=== PATIENT | female | born 2000 | race Caucasian/White ===

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

== ENCOUNTER → 2021-04-07 | Outpatient (CLI) | payer OTHER ==
[~2021-04-07] MED LIST changes: +BUSPAR5 MG PO; +DROSPIRENONE-E1 EAC2 PO; +LEXAPRO20 MG PO
[2021-04-07 17:18] LABS: BASO % 0.3 % (0.0-1.0); EOS # 0.1 10*3/uL (0.0-0.4); EOS % 1.3 % (1.0-4.0); HEMATOCRIT 41.3 % (37.0-47.0); LYMPH # 1.5 10*3/uL (1.3-4.4); LYMPH % 23.5 % (27.0-41.0); MEAN CELL VOLUME 88.2 fl (81.0-99.0); MEAN CORPUSCULAR HGB 28.4 pg (27.0-31.0); MEAN CORPUSCULAR HGB CONC 32.2 g/dl (33.0-37.0); MEAN PLATELET VOLUME 10.4 fl (9.6-12.3); MONO # 0.4 10*3/uL (0.1-1.0); MONO % 6.3 % (3.0-9.0); NEUT # 4.2 10*3/uL (2.3-7.9); NEUT % 68.4 % (47.0-73.0); PLATELET COUNT AUTOMATED 279 10*3/uL (130-400); RED BLOOD COUNT 4.68 10*6/uL (4.10-5.10); RED CELL DISTRI WIDTH 12.8 % (0-14.5); WHITE BLOOD COUNT 6.2 10*3/uL (4.8-10.8)
[2021-04-07 17:30] LABS: ALBUMIN 3.3 gm/dl (3.1-4.5); BUN 8 mg/dl (7-24); CHLORIDE 107 mmol/L (98-107); CREATININE 0.93 mg/dL (0.55-1.02); POTASSIUM 3.9 mmol/L (3.5-5.1); SGOT/AST 23 IU/L (3-35); SGPT/ALT 37 U/L (12-78); SODIUM 139 mmol/L (136-145)
[2021-04-07 19:18] LABS: ALKALINE PHOSPHATASE 69 U/L (45-117)
[2021-04-08 07:20] LABS: TOTAL PROTEIN 8.1 gm/dL (6.4-8.2)
[2021-04-08 15:07] LABS: MYCOPLASMA PNEUMONIAE IGG 898 U/mL (0-99); MYCOPLASMA PNEUMONIAE IGM <770 U/mL (0-769)
[2021-04-09 22:06] LABS: PARAINFLUENZA 1 CF 1:32 (Neg:<1:8); PARAINFLUENZA 2 CF 1:32 (Neg:<1:8); PARAINFLUENZA 3 CF 1:32 (Neg:<1:8)
== END | disposition home or self-care (01) ==
LOC: LAB 16:42
PROVIDERS: ATTEND Nurse Practitioner Family
DX: R53.83 Other fatigue (principal); R06.02 Shortness of breath; R09.81 Nasal congestion; R50.9 Fever, unspecified; R05.9 Cough, unspecified

== ENCOUNTER 2021-04-10 09:15 | Inpatient (IN) | payer OTHER ==
[~2021-04-10] VITALS: Ht 167.6 cm; Wt 89.4 kg
[2021-04-10] VITALS (31 sets, daily range): BP systolic 82–151; BP diastolic 38–80
[~2021-04-10 09:15] MED LIST changes: -BUSPAR5 MG PO; -DROSPIRENONE-E1 EAC2 PO; -LEXAPRO20 MG PO
[2021-04-10 10:20] LABS: BILIRUBIN Negative (Negative); BLOOD 1+ (Negative); CLARITY Turbid (Clear); COLOR Dark Yellow (Yellow); GLUCOSE Negative (Negative); KETONE Trace (Negative); LEUKO ESTERASE Negative (Negative); NITRITE Negative (Negative); SPECIFIC GRAVITY 1.025 (1.001-1.030)
[2021-04-10 10:26] LABS: ARTERIAL BLOOD GAS PH 7.318 (7.35-7.45); ARTERIAL BLOOD GAS PO2 378.8 (80-90)
[2021-04-10 10:28] LABS: URINE AMPHETAMINES < 1000 (1000ng/ml); URINE BARBITURATES < 200 (200ng/ml); URINE BENZODIAZEPINES < 200 (200ng/ml); URINE CANNABINOIDS (THC) < 50 (50ng/ml); URINE COCAINE < 300 (300ng/ml); URINE METHADONE < 300 (300ng/ml); URINE OPIATES < 300 (300ng/ml)
[2021-04-10 10:30] LABS: URINE PHENCYCLIDINE < 25 (25ng/ml)
[2021-04-10 10:30] LABS: ABG BASE EXCESS -9.3 mmol/L (-2.0-2.0)
[2021-04-10 10:35] LABS: BACTERIA 2+; EPITHELIAL CELLS 16-20; WBC 21-30 wbc/hpf (0-5)
[2021-04-10 11:12] LABS: BASO % 0.2 % (0.0-1.0); EOS % 0.1 % (1.0-4.0); HEMATOCRIT 38.5 % (37.0-47.0); LYMPH # 1.2 10*3/uL (1.3-4.4); LYMPH % 7.3 % (27.0-41.0); MEAN CELL VOLUME 89.5 fl (81.0-99.0); MEAN CORPUSCULAR HGB 28.4 pg (27.0-31.0); MEAN CORPUSCULAR HGB CONC 31.7 g/dl (33.0-37.0); MEAN PLATELET VOLUME 10.4 fl (9.6-12.3); MONO # 1.3 10*3/uL (0.1-1.0); MONO % 7.8 % (3.0-9.0); NEUT # 13.7 10*3/uL (2.3-7.9); NEUT % 83.2 % (47.0-73.0); PLATELET COUNT AUTOMATED 259 10*3/uL (130-400); RED CELL DISTRI WIDTH 12.4 % (0-14.5); WHITE BLOOD COUNT 16.4 10*3/uL (4.8-10.8)
[2021-04-10 11:28] LABS: ALBUMIN 2.7 gm/dl (3.1-4.5); ALKALINE PHOSPHATASE 78 U/L (45-117); BUN 14 mg/dl (7-24); CHLORIDE 109 mmol/L (98-107); CREATININE 2.11 mg/dL (0.55-1.02); SGOT/AST 236 IU/L (3-35); SGPT/ALT 85 U/L (12-78); SODIUM 138 mmol/L (136-145); TOTAL PROTEIN 6.8 gm/dL (6.4-8.2)
[2021-04-10 11:31] LABS: B-hCG (QUALITATIVE) NEGATIVE (NEGATIVE)
[2021-04-10 11:36] LABS: POTASSIUM 6.2 mmol/L (3.5-5.1)
[2021-04-10] MEDS ORDERED: LEXAPRO20 MG PO (12:39)
[2021-04-10] MEDS ORDERED: BUSPAR5 MG PO (12:39)
[2021-04-10] MEDS ORDERED: DROSPIRENONE-E1 EAC2 PO (12:40)
[2021-04-10 14:14] LABS: CREATININE 2.18 mg/dL (0.55-1.02)
[2021-04-10 14:17] LABS: POTASSIUM 6.2 mmol/L (3.5-5.1)
[2021-04-10 18:25] LABS: CREATININE 2.39 mg/dL (0.55-1.02)
[2021-04-10 18:32] LABS: POTASSIUM 6.4 mmol/L (3.5-5.1)
[2021-04-10 21:47] LABS: CREATININE 2.55 mg/dL (0.55-1.02)
[2021-04-10 21:57] LABS: POTASSIUM 4.9 mmol/L (3.5-5.1)
[2021-04-10 23:09] LABS: ABG BASE EXCESS -5.6 mmol/L (-2.0-2.0); ARTERIAL BLOOD GAS PH 7.479 (7.35-7.45)
[2021-04-11] VITALS (13 sets, daily range): BP systolic 84–126; BP diastolic 52–85
[2021-04-11 02:11] LABS: CREATININE 2.68 mg/dL (0.55-1.02); POTASSIUM 4.5 mmol/L (3.5-5.1)
[2021-04-11 06:57] LABS: CREATININE 2.96 mg/dL (0.55-1.02); FREE T4 1.01 ng/dl (0.76-1.46); POTASSIUM 4.2 mmol/L (3.5-5.1); TOTAL PROTEIN 5.5 gm/dL (6.4-8.2)
[2021-04-11 07:04] LABS: BASO % 0.2 % (0.0-1.0); EOS % 0.1 % (1.0-4.0); HEMATOCRIT 32.4 % (37.0-47.0); MEAN CORPUSCULAR HGB CONC 32.7 g/dl (33.0-37.0); MONO # 0.8 10*3/uL (0.1-1.0); MONO % 5.2 % (3.0-9.0); NEUT # 11.5 10*3/uL (2.3-7.9); NEUT % 80.1 % (47.0-73.0); RED BLOOD COUNT 3.79 10*6/uL (4.10-5.10); RED CELL DISTRI WIDTH 13.2 % (0-14.5); WHITE BLOOD COUNT 14.3 10*3/uL (4.8-10.8)
[2021-04-11 07:04] LABS: ABG BASE EXCESS -3.8 mmol/L (-2.0-2.0); ARTERIAL BLOOD GAS PH 7.414 (7.35-7.45); ARTERIAL BLOOD GAS PO2 192.3 (80-90)
[2021-04-11 07:10] LABS: THYROID STIM HORMONE (HS) 1.99 uIU/ml (0.358-4.75)
[2021-04-11 07:18] LABS: MEAN CELL VOLUME 85.5 fl (81.0-99.0); PLATELET COUNT AUTOMATED 173 10*3/uL (130-400)
[2021-04-11 08:27] LABS: VITAMIN D, 25-HYDROXY 37.3 ng/mL (30-100)
[2021-04-13 16:07] LABS: APTT 27.2 sec (22.9-30.2)
== END 2021-04-11 09:49 | disposition short-term general hospital (02) | DRG 871 ==
LOC: ED 09:15 → ICCU 14:28 → EDHOLD 14:28 → ICCU 19:47 → EDHOLD 21:28
PROVIDERS: Internal Medicine; ADMIT Internal Medicine; ATTEND Internal Medicine
PROC: 5A1935Z Respiratory Ventilation, Less than 24 Consecutive Hours (ICD-10-PCS; principal; 2021-04-10)
PROC: 0BH17EZ Insertion of Endotracheal Airway into Trachea, Via Natural or Artificial Opening (ICD-10-PCS; 2021-04-10)
PROC: 02H633Z Insertion of Infusion Device into Right Atrium, Percutaneous Approach (ICD-10-PCS; 2021-04-10)
PROC: B548ZZA Ultrasonography of Superior Vena Cava, Guidance (ICD-10-PCS; 2021-04-10)
PROC: 06HY33Z Insertion of Infusion Device into Lower Vein, Percutaneous Approach (ICD-10-PCS; 2021-04-11)
PROC: B54BZZA Ultrasonography of Right Lower Extremity Veins, Guidance (ICD-10-PCS; 2021-04-11)
DX: A41.9 Sepsis, unspecified organism (principal); J69.0 Pneumonitis due to inhalation of food and vomit; J96.01 Acute respiratory failure with hypoxia; E43 Unspecified severe protein-calorie malnutrition; N17.0 Acute kidney failure with tubular necrosis; I21.4 Non-ST elevation (NSTEMI) myocardial infarction; G03.9 Meningitis, unspecified; G93.41 Metabolic encephalopathy; E87.2 Acidosis; M62.82 Rhabdomyolysis; R65.20 Severe sepsis without septic shock; E87.5 Hyperkalemia; E16.2 Hypoglycemia, unspecified; J45.909 Unspecified asthma, uncomplicated; F41.9 Anxiety disorder, unspecified; E87.8 Other disorders of electrolyte and fluid balance, not elsewhere classified; E66.9 Obesity, unspecified; F32.A Depression, unspecified; F17.200 Nicotine dependence, unspecified, uncomplicated; F19.90 Other psychoactive substance use, unspecified, uncomplicated; Z83.3 Family history of diabetes mellitus

== ENCOUNTER 2021-04-26 10:16 | Emergency (ER) | payer OTHER ==
[~2021-04-26 10:16] MED LIST changes: +BUSPAR5 MG PO; +DROSPIRENONE-E1 EAC2 PO; +LEXAPRO20 MG PO
== END 2021-04-26 10:30 | disposition left against medical advice (07) ==
LOC: ED 10:16
DX: M79.609 Pain in unspecified limb (principal); Z53.21 Procedure and treatment not carried out due to patient leaving prior to being seen by health care provider

== ENCOUNTER → 2021-04-27 | Outpatient (CLI) | payer OTHER | END | disposition home or self-care (01) | LOC: US 14:30 | PROVIDERS: ATTEND Family Medicine | DX: M79.604 Pain in right leg (principal) ==

== ENCOUNTER → 2021-06-05 | Outpatient (CLI) | payer OTHER | END | disposition home or self-care (01) | LOC: RAD 05:45 | PROVIDERS: ATTEND Nurse Practitioner Family | DX: J96.90 Respiratory failure, unspecified, unspecified whether with hypoxia or hypercapnia (principal); Z23 Encounter for immunization; T50.901A Poisoning by unspecified drugs, medicaments and biological substances, accidental (unintentional), initial encounter ==

== ENCOUNTER 2021-06-28 03:29 | Emergency (ER) | payer OTHER ==
[~2021-06-28] VITALS: Ht 170.1 cm; Wt 77.1 kg
== END 2021-06-28 05:48 | disposition home or self-care (01) ==
LOC: ED 03:29
DX: T40.411A Poisoning by fentanyl or fentanyl analogs, accidental (unintentional), initial encounter (principal); R11.2 Nausea with vomiting, unspecified; Z79.899 Other long term (current) drug therapy; Z98.890 Other specified postprocedural states; Y92.89 Other specified places as the place of occurrence of the external cause

== ENCOUNTER 2021-08-13 20:25 | Emergency (ER) | payer OTHER | END 2021-08-13 22:00 | disposition home or self-care (01) | LOC: ED 20:25 | DX: F15.90 Other stimulant use, unspecified, uncomplicated (principal); F41.9 Anxiety disorder, unspecified; Z79.899 Other long term (current) drug therapy ==